=== PATIENT | female | born 1945 | race Caucasian/White ===

== ENCOUNTER → 2016-06-04 | Outpatient (CLI) | payer MEDICARE ==
[~2016-06-04] MED LIST: AMOXICILLIN 50500 MG PO; FUROSEMIDE40 MG PO; GABAPENTIN300 MG PO; GLIPIZIDE10 MG PO; IMODIUM 2MG. CAP2 MG PO; JANUVIA50 MG PO; LISINOPRIL HCTZ1 TAB PO; LOVASTATIN40 MG PO; METHYLDOPA250 MG PO; PROPRANOLOL HCL20 MG PO; RANITIDINE HCL150 MG PO; SPIRONOLACTONE25 MG NG; TRADJENTA5 MG PO; XARELTO20 MG PO
[2016-06-04 13:50] VITALS: BP 123/70
[2016-06-04 13:56] LABS: GFR (ESTIMATED) 44 ML/MIN (59-)
[2016-06-04 14:10] VITALS: BP 126/70
[2016-06-04 14:25] VITALS: BP 128/70
== END ==
LOC: COP 12:15
PROVIDERS: Family Medicine
DX: N39.0 Urinary tract infection, site not specified (principal); B96.20 Unspecified Escherichia coli [E. coli] as the cause of diseases classified elsewhere; Z16.12 Extended spectrum beta lactamase (ESBL) resistance
CPT/HCPCS: J1335; J1642

== ENCOUNTER → 2016-06-06 | Outpatient (CLI) | payer MEDICARE ==
[~2016-06-06] VITALS: Ht 160 cm; Wt 56.7 kg
[2016-06-06 10:00] VITALS: BP 153/111
[2016-06-06 10:10] VITALS: BP 150/88
[2016-06-06 10:45] VITALS: BP 163/74
== END ==
LOC: COP 09:46
DX: N39.0 Urinary tract infection, site not specified (principal); B96.20 Unspecified Escherichia coli [E. coli] as the cause of diseases classified elsewhere; Z16.12 Extended spectrum beta lactamase (ESBL) resistance
CPT/HCPCS: J1335

== ENCOUNTER 2016-06-07 10:50 | Outpatient (CLI) | payer MEDICARE ==
[2016-06-07 10:50] VITALS: BP 161/76
[2016-06-07 11:15] VITALS: BP 159/79
[2016-06-07 11:35] VITALS: BP 134/71
== END 2016-06-07 11:45 | disposition home or self-care (01) ==
LOC: COP 10:50
DX: N39.0 Urinary tract infection, site not specified (principal); B96.20 Unspecified Escherichia coli [E. coli] as the cause of diseases classified elsewhere; Z16.12 Extended spectrum beta lactamase (ESBL) resistance
CPT/HCPCS: J1335; J1642

== ENCOUNTER → 2016-06-08 | Outpatient (CLI) | payer MEDICARE ==
[2016-06-08 11:20] VITALS: BP 122/70
[2016-06-08 11:35] VITALS: BP 118/70
[2016-06-08 11:55] VITALS: BP 128/70
== END ==
LOC: COP 13:00
DX: N39.0 Urinary tract infection, site not specified (principal); B96.20 Unspecified Escherichia coli [E. coli] as the cause of diseases classified elsewhere; Z16.12 Extended spectrum beta lactamase (ESBL) resistance
CPT/HCPCS: J1335; J1642